=== PATIENT | female | born 1930 | race Caucasian/White ===

== ENCOUNTER 2016-12-01 16:43 | Emergency (ER) | payer OTHER ==
[~2016-12-01] VITALS: Ht 149.9 cm; Wt 57.1 kg
[~2016-12-01 16:43] MED LIST: ASACOL HD800 MG PO; ASPIR 8181 M1 PO; ATORVASTATIN CA20 MG PO; CYCLOBENZAPRINE10 MG GT; DIOVAN HCT 31 TABLET PO; DIOVAN320 MG PO; FEOSOL325 MG PO; FOLIC ACID1 MG PO; HEPARIN SO5000 UNITS SC; KOMBIGLYZE XR1 EACH PO; METOPROLOL SUCC50 MG PO; OMEPRAZOLE20 MG PO; OXYCODONE HCL5 MG PO; PRAVASTATIN SOD80 MG PO; THERAGRAN1 TABLET PO; TRAMADOL HCL50 MG PO; VITAMIN B12-FO1 EACH PO; WELCHOL625 MG PO
[2016-12-01 19:04] VITALS: BP 163/99
== END 2016-12-01 19:05 | disposition home or self-care (01) ==
LOC: EME 16:43
PROC: 2W3RX1Z Immobilization of Left Lower Leg using Splint (ICD-10-PCS; principal; 2016-12-01)
DX: S82.892A Other fracture of left lower leg, initial encounter for closed fracture (principal); W10.9XXA Fall (on) (from) unspecified stairs and steps, initial encounter; M25.562 Pain in left knee; M17.12 Unilateral primary osteoarthritis, left knee; M11.262 Other chondrocalcinosis, left knee; I10 Essential (primary) hypertension; E78.5 Hyperlipidemia, unspecified; E11.9 Type 2 diabetes mellitus without complications; Z79.84 Long term (current) use of oral hypoglycemic drugs; Z79.82 Long term (current) use of aspirin; Z95.0 Presence of cardiac pacemaker
CPT/HCPCS: 73564; 73590; 73610; 99281; 99284

== ENCOUNTER 2016-12-05 22:34 | Inpatient (IN) | payer OTHER ==
[~2016-12-05] VITALS: Ht 149.9 cm; Wt 62.7 kg
[2016-12-06 00:12] LABS: HEMATOCRIT 33.7 % (36.0-46.0); MCH 29.1 PG (29.0-34.0); MCHC 34.1 G/DL (30.0-36.0); MCV 85.3 FL (83-99); MEAN PLAT.VOLUME 11.6 uM^3 (9.5-12.4); PLATELET COUNT 244 K/uL (156-360); RBC DIS.WIDTH-CV 13.2 % (11.8-14.6); RED BLOOD COUNT 3.95 M/uL (3.80-5.20); WHITE BLOOD COUNT 10.9 K/uL (4.1-10.2)
[2016-12-06 00:19] LABS: ADD MIUA? NO; BILIRUBIN NEGATIVE; BLOOD NEGATIVE; COLOR YELLOW ((YELLOW)); GLUCOSE (STRIP) NEGATIVE; KETONES NEGATIVE; LEUKOCYTES NEGATIVE; NITRITE NEGATIVE; PROTEIN (STRIP) NEGATIVE; SPECIFIC GRAVITY 1.013 (1.000-1.030); UCUL ADDED? NO; UROBILINOGEN 0.2 MG/DL (0.2-1.0)
[2016-12-06] MEDS ORDERED: DIOVAN160 MG PO (00:19)
[2016-12-06] MEDS ORDERED: PRILOSEC20 MG PO (00:20)
[2016-12-06] MEDS ORDERED: LIPITOR10 MG PO (00:23)
[2016-12-06 00:24] LABS: CHLORIDE 98 mEq/L (99-109); POTASSIUM 4.5 mEq/L (3.7-5.4); SODIUM 132 mEq/L (136-147)
[2016-12-06 00:26] LABS: GLUCOSE 122 mg/dL (70-99)
[2016-12-06 00:28] LABS: ANION GAP 11 MEQ/L (2-14); TOTAL BILIRUBIN 0.4 mg/dL (0.0-1.0)
[2016-12-06 00:30] LABS: ALKALINE PHOSPHATASE 110 IU/L (3-129); GFR ESTIMATE (CALCULATED) > 59 mL/min/
[2016-12-06 00:31] LABS: UREA NITROGEN (BUN) 14 mg/dL (9-23)
[2016-12-06 00:32] LABS: DIRECT BILIRUBIN 0.2 mg/dL (0.0-0.3)
[2016-12-06 00:33] LABS: CREATINE KINASE 351 IU/L (1-294); LIPASE 54 U/L (1.0-51.0); TOTAL CK 351 IU/L (1-294); TROP-I INTERPRETATION NEGATIVE; TROPONIN-I < 0.01 ng/mL (0.0-0.30)
[2016-12-06 00:39] LABS: CK-MB 0.8 ng/mL (0.0-4.9)
[2016-12-06 07:58] VITALS: BP 139/65
[2016-12-06 10:21] LABS: HEMATOCRIT 31.2 % (36.0-46.0); MCH 28.6 PG (29.0-34.0); MCHC 33.3 G/DL (30.0-36.0); MCV 85.7 FL (83-99); RBC DIS.WIDTH-CV 13.2 % (11.8-14.6); RBC DIS.WIDTH-SD 41.1 % (39-53); RED BLOOD COUNT 3.64 M/uL (3.80-5.20); WHITE BLOOD COUNT 9.1 K/uL (4.1-10.2)
[2016-12-06 10:56] LABS: HEMATOLOGY COMMENT 1 SMEAR COMPATIBLE; MEAN PLAT.VOLUME 10.5 uM^3 (9.5-12.4); PLAT.SUFFICIENCY ADEQUATE; PLATELET COUNT 217 K/uL (156-360)
[2016-12-06 11:29] LABS: ANION GAP 8 MEQ/L (2-14); CHLORIDE 100 MEQ/L (99-109); CREATINE KINASE 244 IU/L (1-294); GFR ESTIMATE (CALCULATED) > 59 mL/min/; POTASSIUM 4.6 MEQ/L (3.7-5.4); SAMPLE HEMOLYSIS CHECK 1; SAMPLE ICTERIC CHECK 0; SAMPLE LIPEMIA CHECK 0; SODIUM 127 MEQ/L (136-147); UREA NITROGEN (BUN) 12 mg/dL (9-23)
[2016-12-06 11:37] LABS: POINT-OF-CARE METER ID UU14208753
[2016-12-06 11:38] LABS: GLUCOSE 205 mg/dL (70-99)
[2016-12-06 12:07] VITALS: BP 148/65
[2016-12-06 14:12] VITALS: BP 121/65
[2016-12-06 17:24] LABS: POINT-OF-CARE METER ID UU14188577
[2016-12-06 19:24] VITALS: BP 116/69
[2016-12-06 21:19] LABS: POINT-OF-CARE METER ID UU14117124
[2016-12-06 23:49] VITALS: BP 141/64
[2016-12-07 06:05] LABS: HEMATOCRIT 30.7 % (36.0-46.0); MCH 27.8 PG (29.0-34.0); MCHC 32.2 G/DL (30.0-36.0); MCV 86.2 FL (83-99); MEAN PLAT.VOLUME 10.6 uM^3 (9.5-12.4); PLATELET COUNT 223 K/uL (156-360); RBC DIS.WIDTH-CV 13.1 % (11.8-14.6); RBC DIS.WIDTH-SD 41.4 % (39-53); RED BLOOD COUNT 3.56 M/uL (3.80-5.20); WHITE BLOOD COUNT 7.8 K/uL (4.1-10.2)
[2016-12-07 06:08] LABS: ANION GAP 7 MEQ/L (2-14); CHLORIDE 102 MEQ/L (99-109); GFR ESTIMATE (CALCULATED) > 59 mL/min/; GLUCOSE 125 mg/dL (70-99); SAMPLE HEMOLYSIS CHECK 0; SAMPLE ICTERIC CHECK 0; SAMPLE LIPEMIA CHECK 0; SODIUM 133 MEQ/L (136-147); UREA NITROGEN (BUN) 12 mg/dL (9-23)
[2016-12-07 07:05] LABS: POINT-OF-CARE METER ID UU14208753
[2016-12-07 08:18] VITALS: BP 143/65
[2016-12-07 16:18] VITALS: BP 166/70
[2016-12-07 17:06] LABS: POINT-OF-CARE METER ID UU14117124
[2016-12-07 23:53] VITALS: BP 148/77
[2016-12-08 06:24] LABS: POINT-OF-CARE METER ID UU14117124
[2016-12-08 06:45] LABS: BASOPHIL COUNT 0.1 K/uL (0-0.1); EOSINOPHIL (%) 1.9 % (0-5); EOSINOPHIL COUNT 0.2 K/uL (0-0.3); HEMATOCRIT 29.8 % (36.0-46.0); IMMATURE GRANULOCYTE (%) 0.5 % (0.0-0.7); INSTRUMENT ABS NEUTROPHIL CT 5.4 K/uL; LYMPHOCYTE COUNT 1.6 K/uL (1.0-2.8); MCH 29.7 PG (29.0-34.0); MCHC 34.9 G/DL (30.0-36.0); MCV 85.1 FL (83-99); MEAN PLAT.VOLUME 10.7 uM^3 (9.5-12.4); MONOCYTE (%) 9.1 % (3-12); MONOCYTE COUNT 0.7 K/uL (0-0.8); NEUTROPHIL (%) 67.7 % (45-76); NEUTROPHIL COUNT 5.4 K/uL (1.8-6.4); PLATELET COUNT 235 K/uL (156-360); RBC DIS.WIDTH-CV 12.9 % (11.8-14.6); RBC DIS.WIDTH-SD 39.8 % (39-53); WHITE BLOOD COUNT 7.9 K/uL (4.1-10.2)
[2016-12-08 07:03] LABS: ANION GAP 9 MEQ/L (2-14); CHLORIDE 96 MEQ/L (99-109); GFR ESTIMATE (CALCULATED) > 59 mL/min/; GLUCOSE 117 mg/dL (70-99); SAMPLE HEMOLYSIS CHECK 0; SAMPLE ICTERIC CHECK 0; SAMPLE LIPEMIA CHECK 0; SODIUM 130 MEQ/L (136-147); UREA NITROGEN (BUN) 11 mg/dL (9-23)
[2016-12-08 08:00] VITALS: BP 141/62
[2016-12-08 12:16] LABS: POINT-OF-CARE METER ID UU14208753
[2016-12-08 16:05] VITALS: BP 165/70
[2016-12-08 16:24] LABS: POINT-OF-CARE METER ID UU14208753
[2016-12-08 22:40] LABS: POINT-OF-CARE METER ID UU14208753
[2016-12-08 23:48] VITALS: BP 159/66
[2016-12-09 06:49] LABS: BASOPHIL COUNT 0.1 K/uL (0-0.1); EOSINOPHIL (%) 2.2 % (0-5); EOSINOPHIL COUNT 0.1 K/uL (0-0.3); IMMATURE GRANULOCYTE (%) 0.5 % (0.0-0.7); INSTRUMENT ABS NEUTROPHIL CT 4.1 K/uL; LYMPHOCYTE COUNT 1.5 K/uL (1.0-2.8); MCH 28.2 PG (29.0-34.0); MCHC 33.1 G/DL (30.0-36.0); MEAN PLAT.VOLUME 10.8 uM^3 (9.5-12.4); MONOCYTE (%) 9.7 % (3-12); MONOCYTE COUNT 0.6 K/uL (0-0.8); NEUTROPHIL (%) 63.9 % (45-76); NEUTROPHIL COUNT 4.1 K/uL (1.8-6.4); PLATELET COUNT 254 K/uL (156-360); RBC DIS.WIDTH-SD 39.8 % (39-53); RED BLOOD COUNT 3.41 M/uL (3.80-5.20); WHITE BLOOD COUNT 6.4 K/uL (4.1-10.2)
[2016-12-09 06:56] LABS: POINT-OF-CARE METER ID UU14117124
[2016-12-09 07:15] LABS: ANION GAP 9 MEQ/L (2-14); CHLORIDE 98 MEQ/L (99-109); GFR ESTIMATE (CALCULATED) > 59 mL/min/; GLUCOSE 96 mg/dL (70-99); POTASSIUM 4.1 MEQ/L (3.7-5.4); SAMPLE HEMOLYSIS CHECK 0; SAMPLE ICTERIC CHECK 0; SAMPLE LIPEMIA CHECK 0; SODIUM 132 MEQ/L (136-147); UREA NITROGEN (BUN) 9 mg/dL (9-23)
[2016-12-09 08:08] VITALS: BP 138/66
[2016-12-09 11:20] LABS: POINT-OF-CARE METER ID UU14117124
[2016-12-09] MEDS ORDERED: MELOXICAM7.5 MG PO (14:43)
[2016-12-09] MEDS ORDERED: TRAMADOL HCL50 MG PO (14:44)
[2016-12-09] MEDS ORDERED: DOCUSATE SODIU100 MG PO (14:44)
[2016-12-09] MEDS ORDERED: LOVENOX40 MG/0.4 SC (15:04)
[2016-12-09 16:09] VITALS: BP 181/73
[2016-12-09 16:43] VITALS: BP 152/78
== END 2016-12-09 16:52 | DRG 563 ==
LOC: EME → EDBD 22:34 → EME 22:34 → EDOF 12-06 05:00 → 3EAST 12-06 05:00 → ENRESERV 12-06 05:03 → 3EAST 12-06 07:37
PROVIDERS: Emergency Medicine; Hospitalist; Internal Medicine
PROC: 0RSKXZZ Reposition Left Shoulder Joint, External Approach (ICD-10-PCS; principal; 2016-12-06)
DX: S43.085A Other dislocation of left shoulder joint, initial encounter (principal); M62.82 Rhabdomyolysis; S82.832A Other fracture of upper and lower end of left fibula, initial encounter for closed fracture; S82.302A Unspecified fracture of lower end of left tibia, initial encounter for closed fracture; W10.9XXA Fall (on) (from) unspecified stairs and steps, initial encounter; Z95.0 Presence of cardiac pacemaker; E11.9 Type 2 diabetes mellitus without complications; E86.0 Dehydration; M17.0 Bilateral primary osteoarthritis of knee; K58.9 Irritable bowel syndrome, unspecified; I10 Essential (primary) hypertension; J44.9 Chronic obstructive pulmonary disease, unspecified; K21.9 Gastro-esophageal reflux disease without esophagitis; E78.5 Hyperlipidemia, unspecified; E87.1 Hypo-osmolality and hyponatremia
CPT/HCPCS: 71010; 73020; 73030; 80048; 80048 91; 80076; 81003; 82550; 82550 91; 82553; 82948; 83605; 83690; 84484; 85025; 85027; 87040; 87086; 97530 GP; 99281; 99285; J1644; J1815; J2270; J2405; J7030